=== PATIENT | male | born 1990 | race Caucasian/White ===

== ENCOUNTER 2019-04-11 15:56 | Emergency (ER) | payer OTHER ==
[~2019-04-11] VITALS: Ht 190.5 cm; Wt 131.5 kg
[2019-04-11 16:08] VITALS: BP_SYST 102
--- NOTE | 2019-04-11 16:14 | NUR ---
Patient triaged and placed in waiting room. VSS and patient appears in no acute distress at this time. Accompanied by , awaiting available bed, and MD notified of need for MSE.
[2019-04-11] MEDS ORDERED: KETOROLAC TROMETHAMINE 30 MG VIAL IVP ONE (16:15)
[2019-04-11] MEDS ORDERED: ONDANSETRON HCL 4 MG/2 ML VIAL IVP ONE (16:15)
[2019-04-11] MEDS ORDERED: NACL 0.9% 1,000 ML IV ONE (16:15)
--- NOTE | 2019-04-11 16:15 | NUR ---
JACKELYN Mcdonadl examining patient.
--- NOTE | 2019-04-11 16:40 | NUR ---
Patient presented to ER with C/O flu like symptoms. Patient A&Ox4, afebrile, skin pink and warm, cap refil brisk, pain 5/10, N/V, denies diarrhea. Patient states he has nausea, vomiting, fever, chills, loss of appetite, headache since yesterday afternoon. Patient self medicated with OTC Tylenol, patient denies other health hx.
--- NOTE | 2019-04-11 17:00 | NUR ---
# 20 gauge angiocath placed to left arm. Use of asceptic technique. Opsite placed over site. Blood return noted. Blood for lab drawn from site. Flushed with 10 cc of normal saline. No evidence of infiltration noted. Patient tolerated well. Medicated per MD orders. IVF infusing with no s/s of infiltration at this time. Will cont to monitor
[2019-04-11 17:32] LABS: BASOPHILS % (AUTO) 0.2 % (0.0-2.0); EOSINOPHILS % (AUTO) 0.1 % (0.0-4.0); HEMATOCRIT 45.5 % (36-54); HEMOGLOBIN 15.5 g/dL (14.0-18.0); LYMPHOCYTES # (AUTO) 0.7 K/uL (1.0-5.5); LYMPHOCYTES % (AUTO) 11.2 % (20.5-51.5); MEAN CORPUSCULAR HEMOGLOBIN 30 pg (27-31); MEAN CORPUSCULAR HGB CONC 34 % (32-36); MEAN CORPUSCULAR VOLUME 87 fL (79.0-98.0); MONOCYTES # (AUTO) 0.5 K/uL (0.0-1.0); MONOCYTES % (AUTO) 8.7 % (1.7-9.3); NEUTROPHILS # (AUTO) 4.7 K/uL (1.8-7.7); NEUTROPHILS % (AUTO) 79.8 % (40.0-70.0); PLATELET COUNT (AUTO) 187 K/uL (130-430); RED BLOOD CELL COUNT(AUTO) 5.24 MIL/uL (4.2-6.2); RED CELL DISTRIBUTION WIDTH 12.9 % (9.0-15.0); WHITE BLOOD COUNT (AUTO) 5.8 K/uL (4.8-10.8)
[2019-04-11 17:42] LABS: CALCIUM 8.3 mg/dL (8.4-11.0); CREATININE 1.24 mg/dL (0.55-1.30); POTASSIUM 3.5 mmol/L (3.5-5.1)
--- NOTE | 2019-04-11 17:45 | NUR ---
Re-assess for pain: 0/10 headache.
[2019-04-11 18:30] VITALS: BP_SYST 102
--- NOTE | 2019-04-11 18:30 | NUR ---
Patient given written and verbal discharge instructions and verbalizes understanding. ER MD discussed with patient the results and treatment provided. Patient in stable condition. ID arm band removed. IV catheter removed intact and dressing applied, no active bleeding. Rx of Tylenol, motrin, zofran given. Patient educated on pain management and to follow up with PMD. Pain Scale 0/10. Opportunity for questions provided and answered.
== END 2019-04-11 18:30 | disposition home or self-care (01) ==
LOC: SED 15:56
DX: A08.4 Viral intestinal infection, unspecified (principal); E87.1 Hypo-osmolality and hyponatremia; Z88.0 Allergy status to penicillin; R11.2 Nausea with vomiting, unspecified; R50.9 Fever, unspecified; R51 Headache
CPT/HCPCS: 36415; 80048; 85025; 86710; 96361; 96374; 96375; 99283; J1885; J2405; J7030